=== PATIENT | male | born 1960 | race Caucasian/White ===

== ENCOUNTER 2020-02-17 09:31 | Emergency (ER) | payer MEDICAID ==
[~2020-02-17] VITALS: Ht 177.8 cm; Wt 172.4 kg
--- NOTE | 2020-02-18 17:32 | EKG ---
[facility] [address] [facility] [place], [place] [address] Signed Normal sinus rhythm Possible Left atrial enlargement Nonspecific T wave abnormality Abnormal ECG No previous ECGs available Confirmed by LEEROY MERCADO MD ([id number]) on 02/18/2020 5:32:16 PM Electronically Signed By: LEEROY MERCADO MD 02/18/20 1732 PATIENT NAME: JUSTIN LOOMIS Electrocardiogram DATE OF : 64 PHYSICIAN: LEEROY MERCADO MD REPORT #: [id number] REPORT IS CONFIDENTIAL AND NOT TO BE RELEASED WITHOUT AUTHORIZATION
== END 2020-02-17 15:40 | disposition home or self-care (01) ==
LOC: ED 09:31
DX: N18.30 Chronic kidney disease, stage 3 unspecified (principal); I50.9 Heart failure, unspecified; Z87.891 Personal history of nicotine dependence
CPT/HCPCS: 36415; 71045; 80053; 83880; 84484; 85025; 93005; 93010; 99285-25